=== PATIENT | female | born 1940 | race Caucasian/White ===

== ENCOUNTER 2021-12-17 07:27 | Day surgery (SDC) | payer MEDICARE, BC ==
[~2021-12-17 07:27] MED LIST: BUPIVACAINE 0.5% VIAL IJ ONE; CEFAZOLIN 2 GM-D5W BAG** 2 GM/50 ML ML IV ONE; Lactated Ringers 1,000 ML IV ONE; Lactated Ringers 1,000 ML IV SCH; XYLOCAINE 1% HCL 20 ML MDV ONE
[2021-12-17] MEDS ORDERED: CEFAZOLIN 2 GM-D5W BAG** 2 GM/50 ML ML IV ONE (08:02)
[2021-12-17] MEDS ORDERED: Lactated Ringers 1,000 ML IV ONE (08:02)
[2021-12-17] MEDS ORDERED: Decadron 4 MG INJ ONE (10:37)
[2021-12-17] MEDS ORDERED: TORAdol 30 mg Injection ONE (10:37)
[2021-12-17] MEDS ORDERED: BRIDION 200MG/2ML IV ONE (10:37)
[2021-12-17] MEDS ORDERED: Zofran 4 MG/2 ML VIAL ONE (10:37)
[2021-12-17] MEDS ORDERED: Zemuron 100 MG/10 ML ONE (10:37)
[2021-12-17] MEDS ORDERED: Xylocaine-Mpf 2% 5 Ml Vial ONE (10:37)
[2021-12-17] MEDS ORDERED: DIPRIVAN 200 MG/20 ML IV ONE (10:37)
[2021-12-17] MEDS ORDERED: SUBLIMAZE 100 MCG/2 ML ONE (10:37)
--- NOTE | 2021-12-17 11:51 | XRAY ---
Indication: Right 1st MTP sesamoidectomy and 1st MTP arthrodesis. Intraoperative fluoroscopy provided for 27 seconds. 7 digital spot images submitted for interpretation ultimately demonstrates 1st MTP fusion with intact anterior plate and multiple screws. Correlate with intraoperative findings/report.
[2021-12-17 12:38] VITALS: O2SAT 94
[2021-12-17 13:13] VITALS: BP 147/74; PULSE 78
--- NOTE | 2021-12-20 12:21 | XRAY ---
27 seconds fluoroscopy time in surgery for 1st MPJ sesamoidectomy.
--- NOTE | 2021-12-21 10:37 | OP ---
SURGERY DATE: 12/17/2021 SURGERY TIME: 0750 PREOPERATIVE DIAGNOSIS: 1. 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 2. SESMOIDITIS. 3. RIGHT FOOT PAIN. POSTOPERATIVE DIAGNOSIS: 1. 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 2. SESMOIDITIS. 3. RIGHT FOOT PAIN. PROCEDURE: 1. Sesamoidectomy of tibial sesamoid right foot. 2. 1st metatarsophalangeal joint arthrodesis. SURGEON: Mohit Méndez D.P.M. HEALTH SOCIAL WORK PROFESSOR: None. ANESTHESIA: General plus a postoperative local block. HEMOSTASIS: Ankle tourniquet set to 250 mm Hg for 38 total tourniquet minutes. ESTIMATED BLOOD LOSS: Less than 5 cc. MATERIALS: A Boni 1st metatarsophalangeal joint. Right large 1st MTP plate with a 2.5 mm X 34 mm max BPC inter frag screw. INJECTABLES: 20 cc of a 1:1 mixture of 1% Lidocaine plain and 0.5% Bupivicaine plain injected in a Rolon block type fashion. INDICATIONS FOR PROCEDURE: Lisette is a very pleasant 81 y/o female who is very well known to my service for nail care and a significant amount of pain secondary to cockup deformity of her toe. The patient did have a procedure by another provider for excision of a cyst on the plantar aspect of her 1st metatarsophalangeal joint. Resulted in contracture of an extensor tendon. In this case, likely, there was a laceration of the flexor hallucis longus due to the fact that there was minimal muscle strength in plantar flexion of the great toe. This has resulted in a significant extensor tendon contracture and the toe is fixed up approximately 75 degrees. The patient has tried a significant amount of accommodations for this. However, the pain is so significant, this has slowed her down quite significantly. Relatively speaking, she is a healthy patient and would like to continue to be active. However, the pain she has been experiencing in recent history despite accommodations has gotten out of proportion and has slowed her down significantly. This is in effort in order to keep Lisette moving. It is with that all complications, risks, and benefits of the procedure were discussed with the patient including, but not limited to, delayed healing; non-wound healing; possibility of need for surgical intervention at a later date; and possibility of failure of surgical intervention. No guarantees were provided by us to the outcome of surgical intervention. Plenty of time was allowed for the patient to ask questions in regards to the surgical intervention which were answered to the patient's apparent satisfaction. It is with that we decided to proceed. OPERATIVE SUMMARY: The patient was brought in to the OR. Placed on the OR table in the supine position. At this time, general anesthesia was administered until the patient was sedated. A well-padded ankle tourniquet was applied and the tourniquet was set to 250 mm Hg. At this time, the right foot was prepped and draped in typical sterile fashion. The lower extremity was then lowered onto the field. At this time, an Esmarch was utilized to exsanguinate the leg and the tourniquet was inflated to 250 mm Hg. At this time, incision was made over the dorsal aspect of the 1st metatarsophalangeal joint. It was noted that there was a significant base screening of the extensor hallucis longus against the surface of the skin where a Z-type lengthening tenotomy had to be performed in order to gain access to the joint as well as reduce the contracture. At this time, a McGlamry capsulotomy was then performed. An L-type capsulotomy was performed at the dorsal aspect of the 1st metatarsophalangeal joint and the 1st metatarsophalangeal joint was exposed where there was significant cartilage erosion and denuding. At this time, the incision at the lateral aspect of the 1st metatarsophalangeal joint was deepened down and a McGlamry was introduced from dorsal to plantar releasing the sesamoid apparatus. The toe was disarticulated at this time and in the space between the 1st metatarsophalangeal joint and the plantar aspect of the foot. The tibial sesamoid was identified and freed utilizing a combination of sharp and blunt dissection. X-rays were taken and this was deemed to be complete. At this time, a cup and conical reamer was introduced to the central aspects of the metatarsal head as well as the base of the proximal phalanx. Copious amounts of sterile saline were utilized to flush the site. At this time, a 2.0 mm drill was utilized to fenestrate the surface of the joint and a 1st metatarsophalangeal joint plate was introduced over the dorsal aspect of the joint. A combination of locking and nonlocking screws as well as a 2.5 X 34 mm max DPC inter fragmentary screw was introduced in combination with the plate for stability purposes. This was checked under fluoroscopic guidance and deemed to be adequate. Following this copious amounts of sterile saline were utilized to flush the surgical site. A 4-0 Monocryl was utilized to repair the extensor tendon end-to-end which lengthened quite significantly following the procedure. At this time, 4-0 Monocryl was then utilized to coapt the skin edges and 3-0 Nylon was utilized to coapt the skin in a horizontal mattress type fashion. At this time, the tourniquet was dropped. Total tourniquet time was 38 minutes. The dressing consisting of Betadine, Adaptic, 4 X 4, Kerlex, and Jero was applied to the patient's right lower extremity. At this time, the patient was then reversed from anesthesia and returned to the PACU with vital signs stable and vascular status intact. The patient handled the procedure as well as the anesthesia without significant complication. Postoperative orders as indicated in the patient's discharge chart.
== END 2021-12-17 13:15 | disposition home or self-care (01) ==
LOC: SDC 07:27
PROVIDERS: ATTEND Podiatrist Foot & Ankle Surgery
DX: M20.5X1 Other deformities of toe(s) (acquired), right foot (principal); M25.871 Other specified joint disorders, right ankle and foot; M79.671 Pain in right foot; B35.1 Tinea unguium; I73.9 Peripheral vascular disease, unspecified; M77.41 Metatarsalgia, right foot; M19.071 Primary osteoarthritis, right ankle and foot
CPT/HCPCS: 73620; 76000; C1713; J0690; J1100; J1885; J2405; J2704; J3010